=== PATIENT | female | born 1995 | race Caucasian/White ===

== ENCOUNTER 2019-08-13 09:09 | Emergency (ER) | payer MEDICAID ==
[~2019-08-13] VITALS: Ht 170.2 cm; Wt 79.5 kg
[2019-08-13] MEDS ORDERED: naloxone 2mg/2ml inj IV ONE (09:30)
[2019-08-13] MEDS ORDERED: normal saline 1000ML IV soln IVB ONE (09:30)
[2019-08-13 09:41] LABS: BASOPHILS % (AUTO) 0.5 % (0-1); EOSINOPHILS # (AUTO) 0.2 X10'3 (0-0.9); EOSINOPHILS % (AUTO) 2.3 % (0-6); HEMATOCRIT 44.2 % (35.0-45.0); HEMOGLOBIN 14.8 g/dl (12.0-16.0); LYMPHOCYTES % (AUTO) 26.7 % (21-51); MEAN CORPUSCULAR HEMOGLOBIN 32.9 PG (27.0-31.0); MEAN CORPUSCULAR HGB CONC 33.5 g/dL (33.0-36.5); MEAN CORPUSCULAR VOLUME 98.2 FL (78-98); MEAN PLATELET VOLUME 6.9 FL (7.4-10.4); MONOCYTES # (AUTO) 0.7 X10'3 (0-0.9); MONOCYTES % (AUTO) 9.1 % (2-12); NEUTROPHILS # (AUTO) 4.7 X10'3 (1.8-7.7); NEUTROPHILS % (AUTO) 61.4 % (42-75); PLATELET COUNT 315 X10'3 (140-440); RED CELL DISTRIBUTION WIDTH 13.3 % (11.5-14.5); WHITE BLOOD COUNT 7.7 X10'3 (4.5-11.0)
--- NOTE | 2019-08-13 09:45 | NUR ---
Gag reflex continues to be intact at this time.
[2019-08-13 09:50] LABS: HCG SERUM QL NEGATIVE
[2019-08-13 10:05] LABS: ALANINE AMINOTRANSFERASE 24 U/L (12-78); ALBUMIN 3.5 G/DL (3.4-5.0); ALKALINE PHOSPHATASE 133 IU/L (46-116); ANION GAP 4 (8-16); ASPARTATE AMINO TRANSFERASE 19 U/L (10-37); BILIRUBIN,TOTAL 0.4 MG/DL (0.1-1.0); BLOOD UREA NITROGEN 10 MG/DL (7-18); BUN/CREATININE RATIO 10.9 (6.6-38.0); CALCIUM 8.5 MG/DL (8.5-10.1); CHLORIDE 107 MMOL/L (99-107); CREATININE 0.92 MG/DL (0.40-0.90); ETHANOL < 0.010 GM/DL (0.0-0.010); GLUCOSE 87 MG/DL (70-104); SODIUM 141 MMOL/L (135-145); eGFR 75 ML/MIN
--- NOTE | 2019-08-13 10:05 | NUR ---
Dr Barr aware that there is no change in patient since Narcan was given. Pt 100% on room air.
[2019-08-13 10:15] LABS: URINE AMPHETAMINE SCREEN POSITIVE (Neg); URINE BARBITUATE SCREEN NEGATIVE (Neg); URINE BENZODIAZEPINES SCREEN POSITIVE (Neg); URINE CANNABINOID SCREEN POSITIVE (Neg); URINE COCAINE SCREEN NEGATIVE (Neg); URINE METHADONE SCREEN NEGATIVE (Neg); URINE OPIATE SCREEN POSITIVE (Neg); URINE PHENCYCLIDINE SCREEN NEGATIVE (Neg)
--- NOTE | 2019-08-13 10:16 | NUR ---
Pt's gag reflex continues to be intact at this time.
[2019-08-13 12:23] VITALS: BP 142/98
--- NOTE | 2019-08-13 12:30 | NUR ---
Spoke with Ayala at [facility]. Asks that we add a Tylenol and Aspirin level to the labs but the rest that has been done is good. Pt to be monitored for seizures.
--- NOTE | 2019-08-13 13:17 | NUR ---
Dr Mario at bedside. Patient A&O x4. Pt has redressed herself and is walking around in her room.
[2019-08-13 13:30] LABS: ACETAMINOPHEN < 2.0 UG/ML (10-30)
== END 2019-08-13 13:44 | disposition home or self-care (01) ==
LOC: ER 09:09
DX: T40.4X1A Poisoning by other synthetic narcotics, accidental (unintentional), initial encounter (principal); T42.4X1A Poisoning by benzodiazepines, accidental (unintentional), initial encounter; R41.82 Altered mental status, unspecified; R40.0 Somnolence; Y92.89 Other specified places as the place of occurrence of the external cause
CPT/HCPCS: 36415; 80053; 80305; 80320; 80329; 84703; 85025; 93005; 96361; 96374; 99285; J2310; J7030